=== PATIENT | female | born 1950 | race Two or more races ===

== ENCOUNTER → 2018-01-30 | Day surgery (SDC) | payer OTHER ==
[~2018-01-30] MED LIST: AMLO10TA2 PO; GLYB5TAB3 PO; IV RINGERS,LACTATED 1000ML 1,000 ML IV SCH; LIDOCAINE 1% PF 2 ML VIAL. ID PRN; LIDOCAINE 2% PF Vial for OR 5 ML VIAL. ONE; LOSA25TA4 PO; LOVA40TA2 PO; METF10003 PO; MORPHINE SULFATE 2 MG/ML VIAL. IV PRN; ONDANSETRON PF 4 MG/2 ML VIAL. IV PRN; PIOG15TA42 PO; PROCHLORPERAZINE 10 MG/2 ML VIAL. IV PRN; PROPOFOL 40 ML IV ONE; fentaNYL PF VIAL 100 MCG/2 ML VIAL IV PRN
[2018-01-30 09:53] VITALS: BP 117/55
--- NOTE | 2018-01-31 01:02 | PREOP HP ---
DATE OF SERVICE: 01/30/2018 REFERRING PHYSICIAN: Dr. Yap. REASON FOR THE VISIT: History of colonic polyps, screening colon. HISTORY OF PRESENT ILLNESS: A 67-year-old female whose past history is significant for hypertension, diabetes, hyperlipidemia and history of colonic polyps, is seen for interval colonoscopy. Last exam was approximately 7 years ago. There has been no melena and/or hematochezia. No diarrhea or constipation. Weight and appetite has been stable. She is otherwise without additional complaints. PAST MEDICAL HISTORY: Hypertension, diabetes, hyperlipidemia and history of colonic polyps. ALLERGIES: None. MEDICATIONS: Include amlodipine, glyburide, losartan, lovastatin, metformin and Actos. SOCIAL HISTORY: Nonsmoker, nondrinker. PAST SURGICAL HISTORY: She is status post tubal ligation. FAMILY HISTORY: Otherwise, noncontributory. REVIEW OF SYSTEMS: As per records. PHYSICAL EXAMINATION: GENERAL: Reveals a well-nourished, well-developed female, who is alert, cooperative, in no acute distress. VITAL SIGNS: Temperature is 98, pulse 85 and respiratory rate is 18. HEENT EXAMINATION: Reveals normocephalic, atraumatic head. Pupils and extraocular muscles are not tested. Sclerae anicteric. NECK: Supple. LUNGS: Clear. CARDIOVASCULAR EXAMINATION: Reveals an S1, S2, without S3, S4 or appreciable murmur. ABDOMEN: Exam reveals soft abdomen. Normal bowel sounds, without appreciable hepatosplenomegaly. EXTREMITIES: Exam reveals no cyanosis, clubbing or edema. IMPRESSION: Colorectal screening with history of colonic polyps. Surveillance is recommended at this time. Risks and benefits of the procedure have been discussed and the patient is willing to proceed at this time. JASKARAN JEFFERS MD DR: MEGHAN/elia JOB#: [id number] / [id number] YONATAN Clemente MD
== END | disposition home or self-care (01) ==
LOC: ENDOS 07:39
PROVIDERS: ATTEND Internal Medicine Gastroenterology
DX: Z12.11 Encounter for screening for malignant neoplasm of colon (principal); K57.30 Diverticulosis of large intestine without perforation or abscess without bleeding; K64.0 First degree hemorrhoids; I10 Essential (primary) hypertension; E11.9 Type 2 diabetes mellitus without complications; E78.5 Hyperlipidemia, unspecified; Z86.010 Personal history of colon polyps; Z79.84 Long term (current) use of oral hypoglycemic drugs; Z79.899 Other long term (current) drug therapy; Z98.51 Tubal ligation status
CPT/HCPCS: 45378; 82962; J2001; J2704

== ENCOUNTER → 2018-11-03 | Outpatient (CLI) | payer OTHER ==
[2018-01-30 09:53] VITALS: BP 117/55
[~2018-11-03] MED LIST changes: -AMLO10TA2 PO; +AMLO10TA8 PO; -IV RINGERS,LACTATED 1000ML 1,000 ML IV SCH; -LIDOCAINE 1% PF 2 ML VIAL. ID PRN; -LIDOCAINE 2% PF Vial for OR 5 ML VIAL. ONE; -LOSA25TA4 PO; +LOSA25TA54 PO; -METF10003 PO; +METF10007 PO; -MORPHINE SULFATE 2 MG/ML VIAL. IV PRN; -ONDANSETRON PF 4 MG/2 ML VIAL. IV PRN; -PROCHLORPERAZINE 10 MG/2 ML VIAL. IV PRN; -PROPOFOL 40 ML IV ONE; -fentaNYL PF VIAL 100 MCG/2 ML VIAL IV PRN
--- NOTE | 2018-11-03 10:18 | RAD ---
DATE: 11/03/2018 EXAM: MAMMO [facility] SCREENING BILATERAL HISTORY: Routine screening COMPARISON: Baseline study This study was interpreted with the benefit of Computerized Aided Detection (CAD). Breast Density: SCATTERED The breast parenchyma shows scattered fibroglandular densities. Breast parenchyma level B. FINDINGS: 2-D and 3-D tomosynthesis imaging was performed in CC and MLO projections. No spiculated mass or architectural distortion is seen. There are scattered benign type calcifications. No suspicious microcalcifications are evident. IMPRESSION: There is no mammographic evidence of malignancy in either breast. BI-RADS CATEGORY: 2 BENIGN FINDING(S) RECOMMENDED FOLLOW-UP: 12M 12 MONTH FOLLOW-UP PQRS compliance statement: Patient information was entered into a reminder system with a target due date for the next mammogram. Mammography is a sensitive method for finding small breast cancers, but it does not detect them all and is not a substitute for careful clinical examination. A negative mammogram does not negate a clinically suspicious finding and should not result in delay in biopsying a clinically suspicious abnormality. "Our facility is accredited by the [employer] Mammography [employer]."
== END | disposition home or self-care (01) ==
LOC: MAMMO 09:02
PROVIDERS: ATTEND Family Medicine
DX: N64.89 Other specified disorders of breast (principal)
CPT/HCPCS: 77063; 77067

== ENCOUNTER → 2020-04-25 | Outpatient (CLI) | payer MEDICARE ==
[2018-01-30 09:53] VITALS: BP 117/55
[~2020-04-25] MED LIST changes: +AMLO-187 PO; -AMLO10TA8 PO
--- NOTE | 2020-04-25 11:14 | RAD ---
BILATERAL SCREENING MAMMOGRAM, 3-D History: Routine screening. Comparison: 11/03/2018. Technique: MLO and CC digital tomosynthesis (3D) images obtained. Radiologist reviewed these images on dedicated workstation. Findings: Breast Tissue Density B : There are scattered areas of fibroglandular density. There are no dominant masses, suspicious microcalcifications, or architectural distortion. IMPRESSION: No mammographic evidence of malignancy. Recommend routine screening. BI-RADS category 1: Negative. The images were reviewed with computer-aided detection. Patient information is entered into reminder system with a target due date for the next screening mammogram. Mammography is the most sensitive method for finding small breast cancers, but it does not detect them all and is not a substitute for careful clinical examination. A negative mammogram does not negate a clinically suspicious finding and should not result in delay in biopsying a clinically suspicious abnormality. "Our facility is accredited by the [employer] Mammography [employer]." Electronically signed by: Nikhil Barbosa MD (04/25/2020 11:11 AM) [id number]
== END ==
LOC: MAMMO 08:48
PROVIDERS: ATTEND Family Medicine
DX: Z12.31 Encounter for screening mammogram for malignant neoplasm of breast (principal)
CPT/HCPCS: 77063; 77067

== ENCOUNTER → 2021-04-26 | Outpatient (CLI) | payer BC, MEDICARE ==
[2018-01-30 09:53] VITALS: BP 117/55
--- NOTE | 2021-04-26 13:25 | RAD ---
History: 70-year-old asymptomatic female patient presents for routine screening mammogram. PROCEDURE: 3-D tomosynthesis was performed of the breasts bilaterally. 2-D C-view craniocaudal and mediolateral oblique digital mammograms were also generated. The images were also evaluated with [employer] puter-aided detection and the CAD results were analyzed. COMPARISON:[Bilateral mammogram from 04/25/2020 and priors ] FINDINGS: The breast tissue is heterogeneously dense, which could obscure detection of small masses (density le matthew C). There are no suspicious masses, suspicious microcalcifications or areas of architectural dist ortion.Benign stable vascular and nonvascular calcifications are seen in both breasts IMPRESSION: Benign mammogram. Patient information was entered into the [employer] reminder system with a target due date for the next screening mammogram . Routine annual screening mammogram in one year ad vised. BI-RADS Category 2: Benign. Your mammogram demonstrates that you have dense breast tissue, which could hide abnormalities, and if you have other risk factors for breast cancer that have been identified, you might benefit from supp lemental screening tests that may be suggested by your ordering physician. Dense breast tissue, in a nd of itself, is a relatively common condition. This information is not provided to cause undue conc jono, but rather to raise your awareness and to promote discussion with your physician regarding the p resence of other risk factors, in addition to dense breast tissue. A report of your mammography resul ts will be sent to you and your physician. You should contact your physician if you have any questio ns or concerns regarding this report. A mammogram does not have 100% sensitivity and therefore a negative imaging study should not delay fu rther work up of a suspicious abnormality. "Our facility is accredited by the [employer] Mammography [employer]." Electronically signed by: Ilene Bell MD (04/26/2021 1:22 PM) [id number]
== END ==
LOC: MAMMO 09:47
PROVIDERS: ATTEND Family Medicine
DX: Z12.31 Encounter for screening mammogram for malignant neoplasm of breast (principal)
CPT/HCPCS: 77063; 77067